=== PATIENT | male | born 1990 | race Caucasian/White ===

== ENCOUNTER 2016-09-01 03:56 | Emergency (ER) | payer SELFPAY ==
[~2016-09-01] VITALS: Ht 180.3 cm; Wt 124.7 kg
[2016-09-01] MEDS ORDERED: LIDOCAINE 2% 20 ML VIAL. ONE ×2 (04:18→04:20)
[2016-09-01 05:41] VITALS: BP 129/63
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
[2016-09-01] MEDS ORDERED: DIPHTH,PERTUSS(ACELL),TET TOX 0.5 ML DISP.SYRIN. VAX IM ONE (06:30)
== END 2016-09-01 06:30 | disposition home or self-care (01) ==
LOC: ER 03:56
DX: S81.812A Laceration without foreign body, left lower leg, initial encounter (principal); F12.10 Cannabis abuse, uncomplicated; Y28.8XXA Contact with other sharp object, undetermined intent, initial encounter; Y93.89 Activity, other specified; Y99.8 Other external cause status; Y92.008 Other place in unspecified non-institutional (private) residence as the place of occurrence of the external cause
CPT/HCPCS: 12004; 12034; 90471; 90715; 99285-25